=== PATIENT | male | born 1955 | race Caucasian/White ===

== ENCOUNTER 2019-03-15 09:40 | Inpatient (IN) | payer BC, MEDICARE ==
[2019-03-15] MEDS ORDERED: Atropine Sulfate 1 mg/10 ml Syringe ONE (09:47)
[2019-03-15 10:07] LABS: #Basophils 0.1 thou/uL (0.0-0.2); #Eosinphils 0.3 thou/uL (0.0-0.7); #Lymphocytes 2.1 thou/uL (1.20-3.40); #Monocytes 0.7 thou/uL (0.11-0.59); #Neutrophils 4.1 thou/uL (1.40-6.50); %Basophils 0.9 % (0.0-1.0); %Eosinophils 3.8 % (0.0-10.0); %Lymphocytes 29.3 % (21.0-51.0); %Monocytes 9.5 % (0.0-10.0); %Neutrophils 56.5 % (42.0-75.0); Hemoglobin 15.2 g/dL (14.0-18.0); Mean Corpuscular HGB CONC 32.6 g/dL (32.0-36.0); Mean Corpuscular Hemoglobin 32.4 pg (27.0-31.0); Mean Corpuscular Volume 99.4 fL (78.0-98.0); Mean Platelet Volume 8.6 fL (7.4-10.4); Platelet Count 168 thou/uL (130-400); RBC Distribution Width 11.6 % (11.5-14.5); Red Blood Cell (RBC) Count 4.68 mill/uL (4.70-6.10); White Blood Cell (WBC) Count 7.3 thou/uL (4.8-10.8)
[2019-03-15 10:31] LABS: ALT (SGPT) 26 U/L (8-55); AST (SGOT) 27 U/L (5-34); Albumin 4.2 g/dL (3.4-4.8); Alkaline Phosphatase 64 U/L (40-150); Anion Gap 8 mmol/L (10-20); BUN (Urea Nitrogen) 18 mg/dL (8.4-25.7); Bilirubin, Total 0.8 mg/dL (0.2-1.2); Calc. Creatinine Clearance 0 mL/min (70-130); Calcium 9.7 mg/dL (7.8-10.44); Carbon Dioxide 29 mmol/L (23-31); Chloride 107 mmol/L (98-107); Estimated GFR-MDRD 72; Globulin 2.9 g/dL (2.4-3.5); Glucose 100 mg/dL (80-115); Lipase 19 U/L (8-78); Potassium 4.3 mmol/L (3.5-5.1); Protein, Total 7.1 g/dL (5.8-8.1); Sodium 140 mmol/L (136-145)
[2019-03-15] MEDS ORDERED: Ondansetron PF 4 MG/2 ML Vial IVP PRN (11:06)
[2019-03-15] MEDS ORDERED: Senokot S 8.6-50 MG TAB PO PRN (11:06)
[2019-03-15] MEDS ORDERED: Bisacodyl 10 MG SUPP PR PRN (11:06)
[2019-03-15] MEDS ORDERED: Atropine Sulfate 1 mg/10 ml Syringe IVP PRN (11:06)
[2019-03-15] MEDS ORDERED: Acetaminophen 325 MG TAB PO PRN (11:06)
[2019-03-15] MEDS ORDERED: Sodium Chloride 0.9% 1,000 ML IV SCH (11:15)
--- NOTE | 2019-03-15 11:39 | RAD ---
PORTABLE CHEST: Date: 03/15/19 HISTORY: Chest pain. FINDINGS: Lungs are clear. Heart and mediastinum unremarkable. Vasculature normal. IMPRESSION: No acute findings. POS: [facility]
--- NOTE | 2019-03-15 11:41 | HP ---
REASON FOR ADMISSION: Complete heart block. HISTORY OF PRESENTING ILLNESS: The patient had gone to his usual wellness checkup this morning with Dr. Kit Steiner. He was found to have had a very low heart rate and was hypertensive at the clinic. He was immediately sent to emergency room. Here in the ER, the patient's heart rate is trending around 25 beats and has complete heart block. He is totally asymptomatic. No complaints of chest pain, palpitation, PND, or orthopnea. No complaints of cough or expectoration. No complaints of shortness of breath. He in fact swam 1 mile this morning, which he usually does for his routine exercises. The last stress test was 3 or [address] [facility], which was normal as far as he knows. PAST MEDICAL AND SURGICAL HISTORY: No cardiac history per the patient. No surgical history. CURRENT MEDICATIONS: None. ALLERGIES: NO KNOWN DRUG ALLERGIES. PERSONAL HISTORY: Drinks 2 to 3 glasses of wine daily. Does not abuse drugs or smoke. Lives with his . FAMILY HISTORY: Mother at the age of 87. She has had a stroke and has had coronary stents. Father at the age of 85. He has had peripheral vascular disease and stents. 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 CODE STATUS: Full. Power of civil rights attorney is his . REVIEW OF SYSTEMS: CONSTITUTIONAL: Negative for weight loss or gain, ability to conduct usual activities. SKIN: Negative for rash, itching. EYES: Negative for double vision, pain. ENT/MOUTH: Negative for nose bleeding, neck stiffness, pain, tenderness. CARDIOVASCULAR: Negative for palpitations, dyspnea on exertion, orthopnea. RESPIRATORY: Negative for shortness of breath, wheezing, cough, hemoptysis, fever or night sweats. GASTROINTESTINAL: Negative for poor appetite, abdominal pain, heartburn, nausea , vomiting, constipation, or diarrhea. GENITOURINARY: Negative for urgency, frequency, dysuria, nocturia. MUSCULOSKELETAL: Negative for pain, swelling. NEUROLOGIC/PSYCHIATRIC: Negative for anxiety, depression. ALLERGY/IMMUNOLOGIC: Negative for skin rash, bleeding tendency. PHYSICAL EXAMINATION: GENERAL: The patient is a 63-year-old male, who is currently not in any acute distress. VITAL SIGNS: Blood pressure on arrival was 200/105, pulse 26 per minute, respiratory rate 18 per minute, temperature 97.9 degrees Fahrenheit, and saturating 99% on room air. NECK: Supple. There is elevated JVD. HEENT: Eyes, extraocular muscles intact. Pupils reacting to light. Oral cavity, mucous membranes are moist. No exudates or congestion. CARDIOVASCULAR SYSTEM: S1 and S2 heard, bradycardic. RESPIRATORY SYSTEM: Air entry 2+ bilateral. No rales or rhonchi. ABDOMEN: Soft. Bowel sounds heard. No tenderness, rigidity, or guarding. EXTREMITIES: No peripheral edema or calf tenderness. VASCULAR SYSTEM: Peripheral pulses 1+ bilateral. No ischemic ulcerations or gangrene. CENTRAL NERVOUS SYSTEM: No gross focal deficits noted. The patient is alert, awake, and oriented well. PSYCHIATRIC SYSTEM: The patient's mood is euthymic. No hallucinations or delusions. LABORATORY DATA: Chest x-ray by my review shows no acute cardiopulmonary abnormalities. Electrolytes are stable. BUN 18, creatinine 1.0, serum glucose 100. AST, ALT, alkaline phosphatase within normal limits. Troponin I first set is 0.01. Albumin is 4.2 and lipase 19. White count of 7, H and H 15 and 46, platelet count 168, and MCV is 99. EKG done shows complete heart block with bifascicular block at 27 beats per minute. CLINICAL IMPRESSION AND PLAN: The patient will be admitted to ICU for complete heart block. He will be kept n.p.o. Dr. Che has been informed about the patient's presence in the ER. We will keep him n.p.o. and he will be on normal saline at 70 mL per hour. If needed, atropine will be used. He is totally asymptomatic at present. We will obtain an echo with 2D Doppler for left ventricular function as well. The patient has had a prior stress test 4 or 5 years ago, which was normal as far as he knows. We will continue to closely monitor him in the ICU. Job ID: [id number] [facility]
[2019-03-15 12:15] VITALS: BMI 24.1
[2019-03-15 13:38] LABS: Troponin I 0.023 ng/mL (< 0.028)
--- NOTE | 2019-03-15 15:02 | CON ---
DATE OF CONSULTATION: 03/15/2019 REASON FOR CONSULTATION: Bradycardia, complete heart block. HISTORY OF PRESENT ILLNESS: Mr. Reyes is a pleasant 63-year-old white gentleman , who comes to the hospital for bradycardia. He has noted that for the last 6 weeks, he has been more short of breath when he just walks up the stairs, which was not the case in the past. He has been on trips to [place] in the last few weeks as well. When he came back, he decided to go see his primary care doctor, Dr. Steiner, who noticed that his heart rate was in the 20s and hypertensive, so he was immediately transferred over to the ER, where he was found to be in complete heart block with a heart rate of 20. He is asymptomatic. He denies any chest pain, tightness, pressure. Denies any shortness of breath at rest. His blood pressure is actually on the high side. Currently, he continues to feel the same way. He is sitting on the bed, reading a book. PAST MEDICAL HISTORY: None. PAST SURGICAL HISTORY: None. OUTPATIENT MEDICATIONS: None. ALLERGIES: NO KNOWN DRUG ALLERGIES. SOCIAL HISTORY: Drinks 2 to 3 glasses of wine a day. No drugs. No tobacco. Lives at home with , and three months out of the year he lives in [place]. FAMILY HISTORY: No early coronary artery disease. REVIEW OF SYSTEMS: A 12-point review of systems was done and was all negative unless stated in the history of present illness. PHYSICAL EXAMINATION: VITAL SIGNS: Temperature 97.2, pulse 23, respiratory rate 10, satting 99% on room air, blood pressure 162/88. GENERAL: Awake, alert, and oriented x3. No distress. HEENT: Normocephalic and atraumatic. NECK: Supple. LUNGS: Clear. CARDIOVASCULAR: S1 and S2. No S3 or S4. No murmurs. ABDOMEN: Soft. Positive bowel sounds. EXTREMITIES: No edema. SKIN: Warm and dry. LABORATORY DATA: Laboratory work was reviewed. CBC unremarkable. Hemoglobin of 15, hematocrit 46, platelet count of 168. Chemistries normal. Troponin is negative x2. EKG was reviewed. Complete heart block with ventricular escape rhythm at 20 beats per minute, but he is in sinus rhythm otherwise in the 60s. Chest x-ray was reviewed. No acute findings. ASSESSMENT: 1. Complete heart block. 2. Symptomatic bradycardia. PLAN: We spoke at length about the risks and benefits of a pacemaker and this being a life-threatening issue was not corrected. He agrees to proceed. We will try to get this done either today or tomorrow as he is stable and this has been going on for some time now. Thank you for letting me to participate in the care of your patient. We will follow. This is a 75-minute critical care note, half of the time was spent coordinating care. Job ID: [id number] [facility]
[2019-03-15 16:45] LABS: Troponin I 0.021 ng/mL (< 0.028)
--- NOTE | 2019-03-15 18:18 | CON ---
DATE OF CONSULTATION: 03/15/2019 HISTORY OF PRESENT ILLNESS: Mr. Reyes is a pleasant 63-year-old gentleman. He just got back from [place]. He said he noticed that he had dyspnea on exertion, which he never has when he was walking or climbing stairs. He went in to see his primary care doctor, Dr. Steiner today, who noticed that he had a heart rate of less than 30. He did have an elevated blood pressure. He was transferred for admission. He has been admitted to the critical care unit with complete heart block. PAST MEDICAL HISTORY AND PAST SURGICAL HISTORY: Unremarkable. He has never had elevated blood pressure in the past. SOCIAL HISTORY: He is a nonsmoker, drinks wine in the evening and is a non-drug user. ALLERGIES: HE HAS NO REPORTED DRUG ALLERGIES. FAMILY HISTORY: Negative for vascular disease or lung disease in early age. REVIEW OF SYSTEMS: A 12-point review of systems otherwise completely negative. PHYSICAL EXAMINATION: VITAL SIGNS: Heart rate 24, blood pressure 180/86, respiratory rates 12 to 16. Oximetry is 100% on room air. GENERAL: He is in no distress. HEENT: His pupils are equal. Sclerae are anicteric. Extraocular movements are full. Nose and throat are clear. NECK: Supple. No lymphadenopathy. LUNGS: Clear. HEART: Regular rhythm, slow rate. No murmurs heard. ABDOMEN: Soft and nontender. EXTREMITIES: Without clubbing, cyanosis, or edema. NEUROLOGIC: Nonfocal. IMPRESSION: Complete heart block tentatively to be evaluated for pacemaker placement. He is on no medications that would do this. He appears amazingly stable with this heart rate, must have an excellent stroke volume. This is a 70 minute consult, with greater than 50% of time spent on unit coordinating care. Job ID: [id number] [facility]
[2019-03-15] MEDS: Famotidine 20 MG TAB PO SCH (20:08)
[2019-03-16 04:53] LABS: #Eosinphils 0.3 thou/uL (0.0-0.7); #Lymphocytes 1.9 thou/uL (1.20-3.40); #Monocytes 0.6 thou/uL (0.11-0.59); #Neutrophils 3.1 thou/uL (1.40-6.50); %Basophils 0.5 % (0.0-1.0); %Eosinophils 5.5 % (0.0-10.0); %Lymphocytes 32.2 % (21.0-51.0); %Monocytes 9.8 % (0.0-10.0); Hemoglobin 13.9 g/dL (14.0-18.0); Mean Platelet Volume 8.3 fL (7.4-10.4); Platelet Count 139 thou/uL (130-400); RBC Distribution Width 11.5 % (11.5-14.5); Red Blood Cell (RBC) Count 4.21 mill/uL (4.70-6.10)
[2019-03-16 05:15] LABS: Anion Gap 10 mmol/L (10-20); BUN (Urea Nitrogen) 14 mg/dL (8.4-25.7); Calc. Creatinine Clearance 110 mL/min (70-130); Calcium 8.5 mg/dL (7.8-10.44); Carbon Dioxide 25 mmol/L (23-31); Chloride 108 mmol/L (98-107); Estimated GFR-MDRD Greater than 90; Glucose 93 mg/dL (80-115); Potassium 4.3 mmol/L (3.5-5.1); Sodium 139 mmol/L (136-145)
[2019-03-16] MEDS ORDERED: Enoxaparin Sodium 40 MG/0.4 ML SYRINGE SC SCH (09:00)
--- NOTE | 2019-03-16 10:30 | PRG ---
DATE OF SERVICE: 03/16/2019 SUBJECTIVE: Mr. Reyes was complaining of being hungry this morning. He , so we are checking to see if we get him orange or apple juice this morning, so he is not without food for 15 hours. OBJECTIVE: VITAL SIGNS: His heart rate is still in the 20s. He goes from sinus rhythm with a rate of 45 to complete heart block with a rate of 25 to 28, but he is absolutely asymptomatic with all of this. LUNGS: Clear. HEART: Regular rhythm. ABDOMEN: Soft. LABORATORY DATA: White count 6, hemoglobin 13.9, platelets 139. Electrolytes are normal. IMPRESSION: Complete heart block for pacemaker later today. Job ID: [id number]
[2019-03-16] MEDS: Famotidine 20 MG TAB PO SCH ×2 (11:22→21:29)
--- NOTE | 2019-03-16 13:33 | CON ---
DATE OF CONSULTATION: HISTORY: Max Reyes is a 63-year-old white male, admitted with complete heart block with heart rates in the mid 20s. He has been evaluated by Dr. Che. We discussed pacemaker insertion with risk of , pneumothorax, cardiac tamponade with surgical drainage, infection, bleeding, blood clot formation, reoperation for lead dislodgement, etc. He understands and agrees to proceed. Job ID: [id number] [facility]
[2019-03-16] MEDS ORDERED: CEFAZOLIN 1 GM VIAL ONE (14:38)
[2019-03-16] MEDS ORDERED: Gentamicin 80 MG/2 ML VIAL ONE (14:38)
[2019-03-16] MEDS ORDERED: Sodium Chloride 0.9% 1,000 ML IV SCH (14:45)
--- NOTE | 2019-03-16 15:42 | PDOC.PN ---
- Subjective Encounter Start Date: 03/16/19 Encounter Start Time: 10:15 Subjective: no chest pain or sob -: at bedside -: is npo for pcm placement this afternoon - Objective Resuscitation Status - Order Detail: 03/15/19 11:03 Resuscitation Status Routine Resuscitation Status: FULL: Full Resuscitation MAR Reviewed: Yes Vital Signs & Weight: Vital Signs (12 hours) Temp Pulse Ox 03/16/19 13:00 98.5 F 03/16/19 09:00 98.6 F 03/16/19 08:00 99 Weight Weight 188 lb 0.869 oz Most Recent Monitor Data Heart Rate from ECG 23 NIBP 147/74 Respiration from ECG 11 SpO2 99 I&O: 03/15/19 03/16/19 03/17/19 06:59 06:59 06:59 Intake Total 1447 360 Output Total 1050 Balance 397 360 Result Diagrams: 03/16/19 04:29 03/16/19 04:29 Phys Exam - Physical Examination HEENT: PERRLA, moist MMs Neck: no JVD, supple Respiratory: no wheezing, no rales Cardiovascular: no significant murmur, no rub Gastrointestinal: soft, non-tender, positive bowel sounds Musculoskeletal: no edema, pulses present Neurological: non-focal, moves all 4 limbs Psychiatric: normal affect, A&O x 3 Dx/Plan (1) Complete heart block Code(s): I44.2 - ATRIOVENTRICULAR BLOCK, COMPLETE Status: Acute (2) Bradycardia Code(s): R00.1 - BRADYCARDIA, UNSPECIFIED Status: Acute (3) HTN (hypertension) Code(s): I10 - ESSENTIAL (PRIMARY) HYPERTENSION Status: Suspected Qualifiers: Hypertension type: essential hypertension Qualified Code(s): I10 - Essential (primary) hypertension - Plan is going for pcm placement this afternoon by -: hemostable -: likely dc plan in am -: echo still pending -: is off iv fluids * . Review of Systems - Medications/Allergies Allergies/Adverse Reactions: Allergies Allergy/AdvReac Type Severity Reaction Status Date / Time No Known Drug Allergies Allergy Verified 03/15/19 11:32 Medications: Current Medications Acetaminophen (Tylenol) 650 mg PO Q4H PRN PRN Reason: Headache/Fever/Mild Pain (1-3) Atropine Sulfate (Atropine) 1 mg IVP Q4H PRN PRN Reason: if symptomatic with bradycardi Bisacodyl (Dulcolax) 10 mg [place] DAILYPRN PRN PRN Reason: Constipation Enoxaparin Sodium (Lovenox) 40 mg SC 0900 [facility] Last Admin: 03/16/19 11:22 Dose: Not Given Famotidine (Pepcid) 20 mg PO BID [facility] Last Admin: 03/16/19 11:22 Dose: Not Given Sodium Chloride (Normal Saline 0.9%) 1,000 mls @ 100 mls/hr IV .Q10H [facility] Last Admin: 03/16/19 15:10 Dose: 1,000 mls Ondansetron HCl (Zofran) 4 mg IVP Q6H PRN PRN Reason: Nausea/Vomiting Senna/Docusate Sodium (Senokot S) 2 tab PO BID PRN PRN Reason: Constipation Sodium Chloride (Flush - Normal Saline) 10 ml IVF Q12HR WOLF Sodium Chloride (Flush - Normal Saline) 10 ml IVF PRN PRN PRN Reason: Saline Flush
[2019-03-16] MEDS ORDERED: Fentanyl 100 MCG/2 ML VIAL ONE (16:31)
[2019-03-16] MEDS ORDERED: Midazolam HCl 2 mg/2 ml Vial ONE (16:31)
[2019-03-16] MEDS ORDERED: Lidocaine 1% (PF) 30 ML VIAL ONE (16:40)
[2019-03-16] MEDS ORDERED: Acetaminophen/Codeine 30-300mg Tablet PO PRN ×2 (17:48)
--- NOTE | 2019-03-16 19:01 | RAD ---
CHEST ONE VIEW: 03/16/19 INDICATION: Post cardiac device placement. FINDINGS: There is a dual lead pacemaker projecting in the expected position. No pneumothorax is evident. Heart size is normal. No acute osseous abnormality is noted. IMPRESSION: Interval placement of a dual lead pacemaker without evidence of complication. POS: [facility]
[2019-03-16] MEDS: Cephalexin 250 MG CAP PO SCH (21:29)
[2019-03-17 07:39] VITALS: BP 162/100; TEMP 98.8
[2019-03-17] MEDS ORDERED: Amlodipine 10 MG TAB PO SCH (09:00)
[2019-03-17] MEDS: Famotidine 20 MG TAB PO SCH ×2 (09:12→09:14)
[2019-03-17] MEDS: Cephalexin 250 MG CAP PO SCH (09:12)
--- NOTE | 2019-03-17 16:19 | CCL ---
PERMANENT PACEMAKER PLACEMENT: INDICATION: Complete heart block with heart rate of 22 per minute. DESCRIPTION OF PROCEDURE: The patient was brought to the Cardiac Senior Game Developer and the left subclavian area was prepped and draped. Patient was given 1 mg of versed IV. 1% Lidocaine was infiltrated and J-wire was placed into the left subclavian vein. Pacemaker pocket was manufactured using blunt and sharp dissection with electrocautery for hemostasis. An antibiotic solution soaked 4x4 gauze was placed in the pocket. A second J-wire was then inserted. Using 7- Wolof peel away sheaths, the atrial and ventricular leads were inserted. The right ventricular lead was screwed into the right ventricular apex and right atrial lead was screwed into the right atrium. Right ventricular lead, R-wave none, impedance 1005, threshold 1.2 volts. For the atrial lead, the P-wave was 3.7, impedance 590, threshold 0.8 volts. The tabs on the suture tie-downs were removed and both leads were secured in place with two sutures of 0 silk. The antibiotic solution soaked gauze was removed and the subcutaneous pocket was irrigated with copious amounts of antibiotic solution. The leads were attached to the pacemaker generator and this inserted into the pocket and secured in place with one suture of 0 silk. The incision was then closed using two layers of running 3-0 Vicryl, one layer of running 4-0 Vicryl. Dermabond was placed on the incision. The patient tolerated the procedure well. RICHI
--- NOTE | 2019-03-17 17:20 | DIS ---
DATE OF ADMISSION: 03/15/2019 DATE OF DISCHARGE: 03/17/2019 DISCHARGE DISPOSITION: Home. PRIMARY DISCHARGE DIAGNOSES: Complete heart block status post pacemaker, severe bradycardia, and mild hypertension. PROCEDURES DONE DURING HOSPITALIZATION: The patient has had a pacemaker placed by Dr. Avila on 03/16/2019. Echo with 2D Doppler showed ejection fraction of 60% to 65%. No evidence of aortic valve regurgitation. There was aortic valve sclerosis, but was opening well. Hemoglobin and hematocrit of 13 and 42, platelet count 139, white count of 6, MCV is 100. Troponin x3 negative. BUN 14, creatinine 0.8. Liver enzymes were within normal limits. INPATIENT CONSULTS: Dr. Che/Dr. Avila for Cardiology, Dr. Desai for Critical Care. DISCHARGE PLAN: The patient to follow up with Dr. Avila as advised and primary care physician in 1 week. DISCHARGE MEDICATIONS: Keflex 250 mg p.o. three times daily for 10 days. BRIEF COURSE DURING HOSPITALIZATION: The patient initially had gone for a wellness checkup at his primary care physician, Dr. Kit Steiner' office. He was found to be bradycardic and had elevated blood pressure. He was immediately sent over to emergency room. On arrival here, the patient was found to be in complete heart block with heart rates in the 20s with ventricular escape rhythm. He was clinically asymptomatic, although he was in complete heart block. The patient was admitted to ICU and has had consultation with Dr. Che. He has had a pacemaker placed on the by Dr. vAila. Post pacemaker, his heart rhythm is paced. He has borderline hypertension and I have advised him to check blood pressure twice daily and to follow up with Dr. Avila with the records for any changes in his medication. He is reluctant to start any medication as of now. He needs to continue Keflex 250 mg three times daily for another 10 days post pacemaker placement antibiotics. He is hemodynamically stable and is wanting to go home today. Post pacemaker instructions will be given prior to discharge. Please note, I have seen and examined the patient on the day of discharge. Job ID: [id number]
== END 2019-03-17 11:20 | disposition home or self-care (01) | DRG 244 ==
LOC: ERS 09:40 → CCU 11:49 → 2NO 03-16 18:17
PROVIDERS: ADMIT Internal Medicine; ATTEND Internal Medicine
PROC: 0JH606Z Insertion of Pacemaker, Dual Chamber into Chest Subcutaneous Tissue and Fascia, Open Approach (ICD-10-PCS; principal; 2019-03-15)
PROC: 02HK3JZ Insertion of Pacemaker Lead into Right Ventricle, Percutaneous Approach (ICD-10-PCS; 2019-03-15)
PROC: 02H63JZ Insertion of Pacemaker Lead into Right Atrium, Percutaneous Approach (ICD-10-PCS; 2019-03-15)
DX: I44.2 Atrioventricular block, complete (principal); R00.1 Bradycardia, unspecified; I10 Essential (primary) hypertension
CPT/HCPCS: 33208; 36415; 71045; 80048; 80053; 83690; 83735; 84484; 85025; 93005; 93306; 94760; 99152; 99153; 99292; C1785; C1898; J0461; J0690; J1580; J2001; J2250; J3010